=== PATIENT | male | born 1995 | race Caucasian/White ===

== ENCOUNTER 2017-01-09 22:45 | Emergency (ER) | payer OTHER ==
[~2017-01-09] VITALS: Ht 180.3 cm; Wt 72.7 kg
[2017-01-09] MEDS ORDERED: NS 1,000 ML IV ONE (23:00)
[2017-01-09 23:10] LABS: BASO # 0.1 K/mm3 (0.0-0.2); BASO % 0.7 % (0.0-1.0); EOS # 0.4 K/mm3 (0.0-0.50); EOS % 4.1 % (0.0-3.0); LARGE UNSTAINED CELL # 0.2 K/mm3 (0.0-0.4); LARGE UNSTAINED CELL % 1.8 % (0.0-4.0); LYMPH # 3.5 K/mm3 (1.5-6.5); LYMPH % 35.9 % (24.0-44.0); MEAN CORPUSCULAR HEMOGLOBIN 30.5 pg (27.0-33.0); MEAN CORPUSCULAR HGB CONC 33.3 g/dl (32.0-36.5); MEAN CORPUSCULAR VOLUME 91.3 fl (80.0-96.0); MONO # 0.4 K/mm3 (0.0-0.8); MONO % 4.7 % (0.0-5.0); NEUTROPHILS # 4.9 K/mm3 (1.8-7.7); NEUTROPHILS % 52.9 % (36.0-66.0); PLATELET COUNT, AUTOMATED 212 k/mm3 (150-450); RED CELL DISTRIBUTION WIDTH 13.7 % (11.5-14.5); WHITE BLOOD COUNT 9.2 K/mm3 (4.0-10.0)
[2017-01-10] MEDS ORDERED: LIDOCAINE 2% W/EPIN INJ 20ML **PRES FREE As Ordered ONE (00:22)
[2017-01-10] MEDS ORDERED: LIDOCAINE W/EPINEPHRINE 1% 20ML VIAL SC ONE (00:30)
[2017-01-10] MEDS ORDERED: KEFL500C17 PO (01:13)
[2017-01-10] MEDS ORDERED: LIDOCAINE 2% W/EPIN INJ 20ML **PRES FREE INJ ONE (01:15)
[2017-01-10 01:16] VITALS: BP 102/52
--- NOTE | 2017-01-10 07:58 | REP ---
Clinical: Trauma. Foreign body. Technique: AP and lateral views of the right forearm. Findings: Multiple radiodense shards are identified within the subcutaneous tissues of the mid forearm. Findings are compatible with foreign body material and require correlation. Elbow and wrist appear normal. No fracture. Impression: Multiple shard-like foreign bodies within the soft tissues of the mid forearm. Signed by Krzysztof Hardy MD 01/10/2017 07:50 A
== END 2017-01-10 01:27 | disposition home or self-care (01) ==
LOC: M ED 22:45 → EDBD 22:45 → M ED 01-10 01:27
DX: S51.821A Laceration with foreign body of right forearm, initial encounter (principal); W19.XXXA Unspecified fall, initial encounter; W25.XXXA Contact with sharp glass, initial encounter; Y92.009 Unspecified place in unspecified non-institutional (private) residence as the place of occurrence of the external cause; Y93.89 Activity, other specified; Y99.8 Other external cause status; Z88.0 Allergy status to penicillin